=== PATIENT | male | born 1960 | race Caucasian/White ===

== ENCOUNTER 2021-07-29 12:59 | Inpatient (IN) | payer OTHER ==
[2021-07-29] MEDS ORDERED: SODIUM CHLORIDE 0.9% 1000 ML INFUS.BAG IV ONE (13:18)
[2021-07-29] MEDS ORDERED: DEXAMETHASONE SOD PHOSPHATE 10 MG/1 ML VIAL IVPUSH ONE (13:46)
[2021-07-29] MEDS ORDERED: ALBUTEROL SO4 2.5/IPRATROPIUM 0.5 INH SOL 3 ML VIAL.NEB. NEB ONE (13:53)
[2021-07-29] MEDS ORDERED: DEXAMETHASONE SOD PHOSPHATE 10 MG/1 ML VIAL ONE (13:53)
[2021-07-29] MEDS: ALBUTEROL SO4 2.5/IPRATROPIUM 0.5 INH SOL 3 ML VIAL.NEB. NEB SCH ×4 (14:01→14:50)
[2021-07-29] MEDS ORDERED: VANCOMYCIN 1 GM in D5W (PRE-DOCKED) 1,000 MG/250 ML IVPB ONE (14:08)
[2021-07-29] MEDS ORDERED: CEFEPIME HCL/D5W 2 GM/50 ML BAG IVPB ONE (14:08)
[2021-07-29] MEDS ORDERED: VANCOMYCIN 1 GRAM (PRE-DOCKED) 1,000 MG/250 ML BAG IVPB ONE (14:26)
[2021-07-29] MEDS ORDERED: CEFEPIME 2 GM/100 ML BAG IVPB ONE (14:26)
[2021-07-29 14:54] LABS: HEMATOCRIT 22.4 % (35.4-49); HEMOGLOBIN 7.2 GM/dL (11.7-16.9); MCH 26.2 pg (25.7-33.7); MCHC 32.1 g/dl (32.0-35.9); MEAN CELL VOLUME 81.6 fl (80-96); MEAN PLT VOLUME 8.7 fl (7.5-11.1); PLATELET COUNT 107 10^3/uL (134-434); RBC 2.74 M/mm3 (4.00-5.60); RDW 15.5 % (11.9-15.9); WHITE BLOOD COUNT 18.6 K/mm3 (4.0-10.0)
[2021-07-29 14:55] LABS: ARTERIAL BLD GAS O2 SATURATION 99.3 % (95-98); ARTERIAL BLOOD GAS BASE EXCESS -0.9 mmol/L (-2-2); ARTERIAL BLOOD GAS PO2 177.6 mmHg (80-100); ARTERIAL BLOOD GAS pH 7.489 (7.350-7.450)
[2021-07-29] MEDS ORDERED: SODIUM CHLORIDE 0.9% 500 ML INFUS.BAG IV ONE (14:57)
[2021-07-29 15:01] LABS: INR 1.94 (0.83-1.09); PROTHROMBIN TIME (PATIENT) 22.5 SEC (9.7-13.0)
[2021-07-29 15:03] LABS: ACTIVATED PTT 29.8 SECONDS (25.2-36.5)
[2021-07-29 15:12] LABS: CHLORIDE 91 mmol/L (98-107); SODIUM 124 mmol/L (136-145)
[2021-07-29 15:15] LABS: ALBUMIN 1.4 g/dl (3.4-5.0); ANION GAP 11 MMOL/L (8-16); BLOOD UREA NITROGEN 25.8 mg/dL (7-18); CO2 22 mmol/L (21-32); GLUCOSE,RANDOM 131 mg/dL (74-106); MAGNESIUM 2.3 mg/dL (1.8-2.4)
[2021-07-29 15:17] LABS: SGOT/AST 145 U/L (15-37)
[2021-07-29 15:18] LABS: CREATININE 1.1 mg/dL (0.55-1.3); PHOSPHOROUS 4.1 mg/dL (2.5-4.9); SGPT/ALT 50 U/L (13-61)
[2021-07-29 15:19] LABS: BILIRUBIN,TOTAL 1.4 mg/dL (0.2-1)
[2021-07-29 15:20] LABS: TOT PROT 4.4 g/dl (6.4-8.2)
[2021-07-29 15:21] LABS: ALK PHOS 286 U/L (45-117)
[2021-07-29 15:24] LABS: ANISOCYTOSIS 0; HELMET CELLS 0; HOWELL-JOLLY BODIES 0; MACROCYTOSIS 0; OVALOCYTE 0; ROULEAU 0; SICKELED CELLS 0; TARGET CELLS 0; TEAR DROP CELLS 0; TOXIC GRANULATION 0
[2021-07-29 15:25] LABS: LACTIC ACID 2.2 mmol/L (0.4-2.0)
[2021-07-29] MEDS: SODIUM CHLORIDE 1,000 ML IV SCH (16:30)
[2021-07-29 17:15] LABS: ARTERIAL BLD GAS O2 SATURATION 98.2 % (95-98); ARTERIAL BLOOD GAS BASE EXCESS -5.8 mmol/L (-2-2); ARTERIAL BLOOD GAS PO2 111.3 mmHg (80-100); ARTERIAL BLOOD GAS pH 7.417 (7.350-7.450)
[2021-07-29 17:38] LABS: BASO % 0.1 % (0-2.0); EOS % 0.1 % (0-4.5); HEMATOCRIT 17.6 % (35.4-49); LYMPH % 1.6 % (8-40); MCH 26.2 pg (25.7-33.7); MCHC 32.4 g/dl (32.0-35.9); MEAN CELL VOLUME 81.1 fl (80-96); MEAN PLT VOLUME 8.4 fl (7.5-11.1); MONO % 2.3 % (3.8-10.2); NEUT % 95.9 % (42.8-82.8); PLATELET COUNT 80 10^3/uL (134-434); RBC 2.17 M/mm3 (4.00-5.60); RDW 15.5 % (11.9-15.9); RETICULOCYTES 2.22 % (0.5-1.5)
[2021-07-29 17:47] LABS: HEMOGLOBIN 5.7 GM/dL (11.7-16.9)
[2021-07-29 17:50] LABS: CHLORIDE 94 mmol/L (98-107); SODIUM 125 mmol/L (136-145)
[2021-07-29 17:52] LABS: ANION GAP 12 MMOL/L (8-16); CO2 20 mmol/L (21-32)
[2021-07-29 17:53] LABS: GLUCOSE,RANDOM 183 mg/dL (74-106)
[2021-07-29 17:55] LABS: URIC ACID 4.3 mg/dL (2.6-7.2)
[2021-07-29 17:56] LABS: CREATININE 0.9 mg/dL (0.55-1.3)
[2021-07-29 17:57] LABS: IRON SERUM 10 ug/dL (50-175); LDH 195 U/L (87-246); TOTAL IRON BINDING CAPACITY 111 ug/dL (250-450)
[2021-07-29 17:58] LABS: BLOOD UREA NITROGEN 23.8 mg/dL (7-18)
[2021-07-29 18:08] LABS: ANISOCYTOSIS 2+; MACROCYTOSIS 1+; TARGET CELLS 2+
[2021-07-29 18:33] LABS: CALCIUM 6.3 mg/dL (8.5-10.1)
[2021-07-29 19:40] LABS: EPI CELLS 22 /uL (0-25.1); HYALINE CASTS 4 /uL (0-3.1); PH,URINE 6.5 (5.0-8.0); URINE APPEARANCE CLEAR; URINE BILIRUBIN NEGATIVE (NEGATIVE); URINE COLOR YELLOW; URINE GLUCOSE (UA) TRACE (NEGATIVE); URINE KETONE NEGATIVE (NEGATIVE); URINE LEUK ESTERASE NEGATIVE (NEGATIVE); URINE NITRITE POSITIVE (NEGATIVE); URINE PROTEIN 1+ (NEGATIVE); URINE RBC 38 /uL (0-23.9); URINE UROBILINOGEN 0.2 mg/dL (0.2-1.0); URINE WBC 21 /uL (0-25.8)
[2021-07-29] MEDS ORDERED: HEPARIN NA (PORCINE) 5,000 UNITS/ML 1ML VIAL IVPUSH PRN ×2 (21:43)
[2021-07-29] MEDS: HEPARIN - 25,000 UNIT in SODIUM CHLORIDE 495 ML IV SCH (23:11)
[2021-07-29] MEDS: MUPIROCIN 2% TOPICAL OINTMENT FOR DECOLONIZATION NS SCH (23:14)
[2021-07-29] MEDS: CHLORHEXIDINE GLUCONATE 4% CLEANSER FOR DECOLONIZATION TP SCH (23:16)
[2021-07-30] MEDS ORDERED: VANCOMYCIN 1,000 MG in DEXTROSE 5%-WATER - 250 ML IVPB SCH
[2021-07-30] MEDS ORDERED: PIPERACILLIN/TAZOB 4.5 GM 4.5 GM in DEXTROSE 5%-WATER 100 ML IVPB SCH
[2021-07-30] MEDS ORDERED: DEXTROSE 5%-WATER 100 ML IVPB ONE ×3 (01:35→17:05)
[2021-07-30] MEDS ORDERED: PIPERACILLIN/TAZOBACTAM 4.5 GM VIAL IVPB ONE ×3 (01:35→17:05)
[2021-07-30] MEDS: PIPERACILLIN/TAZOB 4.5 GM 4.5 GM in DEXTROSE 5%-WATER 100 ML IVPB SCH ×3 (01:47→17:14)
[2021-07-30] MEDS ORDERED: PIPERACILLIN/TAZOB 3.375 GM 3.375 GM in DEXTROSE 5%-WATER - 50 ML IVPB SCH (02:00)
[2021-07-30] MEDS ORDERED: CALCIUM GLUC IN NACL, ISO-OSM 1 GM/50 ML BAG IVPB ONE (02:41)
[2021-07-30 07:32] LABS: HEMATOCRIT 34.7 % (35.4-49); HEMOGLOBIN 11.4 GM/dL (11.7-16.9); MCHC 32.8 g/dl (32.0-35.9); MEAN CELL VOLUME 82.3 fl (80-96); MEAN PLT VOLUME 8.3 fl (7.5-11.1); PLATELET COUNT 72 10^3/uL (134-434); RBC 4.21 M/mm3 (4.00-5.60); RDW 16.1 % (11.9-15.9); WHITE BLOOD COUNT 24.1 K/mm3 (4.0-10.0)
[2021-07-30 08:00] LABS: ALBUMIN 1.4 g/dl (3.4-5.0); BLOOD UREA NITROGEN 21.7 mg/dL (7-18); MAGNESIUM 2.3 mg/dL (1.8-2.4)
[2021-07-30 08:03] LABS: CREATININE 0.7 mg/dL (0.55-1.3); PHOSPHOROUS 3.2 mg/dL (2.5-4.9)
[2021-07-30 08:05] LABS: TOT PROT 4.6 g/dl (6.4-8.2)
[2021-07-30 08:15] LABS: CALCIUM 7.6 mg/dL (8.5-10.1)
[2021-07-30 09:11] LABS: ANISOCYTOSIS 0; HELMET CELLS 0; HOWELL-JOLLY BODIES 0; MACROCYTOSIS 0; OVALOCYTE 0; ROULEAU 0; SICKELED CELLS 0; TARGET CELLS 0; TEAR DROP CELLS 0; TOXIC GRANULATION 0
[2021-07-30] MEDS ORDERED: CALCIUM GLUCONATE IN NACL 1 GM/50 ML BAG IVPB ONE (09:15)
[2021-07-30] MEDS: MUPIROCIN 2% TOPICAL OINTMENT FOR DECOLONIZATION NS SCH ×2 (09:27→21:34)
[2021-07-30] MEDS ORDERED: VANCOMYCIN 1 GM in D5W (PRE-DOCKED) 1,000 MG/250 ML IVPB SCH (10:00)
[2021-07-30 12:12] LABS: SARS-CoV-2 NAA Not Detected (Not Detected)
[2021-07-30] MEDS: VANCOMYCIN/WATER FOR INJ (PEG) 1,000 MG/200 ML BAG IVPB SCH (13:02)
[2021-07-30 13:08] LABS: URIC ACID 3.7 mg/dL (2.6-7.2)
[2021-07-30 13:09] LABS: BILIRUBIN,DIRECT 1.5 mg/dL (0.0-0.2)
[2021-07-30 16:45] LABS: HEMOGLOBIN 11.1 GM/dL (11.7-16.9); MCH 26.7 pg (25.7-33.7); MCHC 32.7 g/dl (32.0-35.9); MEAN CELL VOLUME 81.5 fl (80-96); MEAN PLT VOLUME 8.8 fl (7.5-11.1); PLATELET COUNT 83 10^3/uL (134-434); RBC 4.17 M/mm3 (4.00-5.60); RDW 16.4 % (11.9-15.9); WHITE BLOOD COUNT 28.7 K/mm3 (4.0-10.0)
[2021-07-30 18:02] LABS: HIV INTERPRETATION NEGATIVE (NEGATIVE)
[2021-07-30] MEDS: SODIUM CHLORIDE 1,000 ML IV SCH ×2 (19:00→21:33)
[2021-07-30] MEDS: CHLORHEXIDINE GLUCONATE 4% CLEANSER FOR DECOLONIZATION TP SCH (21:34)
[2021-07-30] MEDS: HEPARIN - 25,000 UNIT in SODIUM CHLORIDE 495 ML IV SCH (21:37)
[2021-07-31] MEDS ORDERED: PIPERACILLIN/TAZOBACTAM 4.5 GM VIAL IVPB ONE ×3 (01:05→18:01)
[2021-07-31] MEDS ORDERED: DEXTROSE 5%-WATER 100 ML IVPB ONE ×4 (01:06→19:47)
[2021-07-31] MEDS: PIPERACILLIN/TAZOB 4.5 GM 4.5 GM in DEXTROSE 5%-WATER 100 ML IVPB SCH ×3 (01:14→18:07)
[2021-07-31 07:16] LABS: HEMATOCRIT 33.3 % (35.4-49); HEMOGLOBIN 10.9 GM/dL (11.7-16.9); MCH 26.8 pg (25.7-33.7); MCHC 32.6 g/dl (32.0-35.9); MEAN CELL VOLUME 82.2 fl (80-96); MEAN PLT VOLUME 8.8 fl (7.5-11.1); PLATELET COUNT 75 10^3/uL (134-434); RBC 4.05 M/mm3 (4.00-5.60); RDW 16.5 % (11.9-15.9); WHITE BLOOD COUNT 28.5 K/mm3 (4.0-10.0)
[2021-07-31] MEDS: MUPIROCIN 2% TOPICAL OINTMENT FOR DECOLONIZATION NS SCH ×2 (09:31→22:14)
[2021-07-31] MEDS: VANCOMYCIN/WATER FOR INJ (PEG) 1,000 MG/200 ML BAG IVPB SCH (14:00)
[2021-07-31] MEDS: SODIUM CHLORIDE 1,000 ML IV SCH (17:10)
[2021-07-31] MEDS ORDERED: MEROPENEM 1 GM VIAL (RESTRICTED TO ID) IVPB ONE (19:47)
[2021-07-31] MEDS: MEROPENEM 1 GM in DEXTROSE 5%-WATER 100 ML IVPB SCH (19:51)
[2021-07-31] MEDS: HEPARIN - 25,000 UNIT in SODIUM CHLORIDE 495 ML IV SCH (22:14)
[2021-07-31] MEDS: CHLORHEXIDINE GLUCONATE 4% CLEANSER FOR DECOLONIZATION TP SCH (22:15)
[2021-08-01] MEDS ORDERED: MEROPENEM 1 GM VIAL (RESTRICTED TO ID) IVPB ONE ×4 (01:02→23:25)
[2021-08-01] MEDS ORDERED: DEXTROSE 5%-WATER 100 ML IVPB ONE ×4 (01:03→23:26)
[2021-08-01] MEDS: MEROPENEM 1 GM in DEXTROSE 5%-WATER 100 ML IVPB SCH ×3 (01:12→17:11)
[2021-08-01 07:19] LABS: HEMOGLOBIN 9.6 GM/dL (11.7-16.9); MCH 27.2 pg (25.7-33.7); MCHC 33.2 g/dl (32.0-35.9); MEAN PLT VOLUME 9.9 fl (7.5-11.1); PLATELET COUNT 69 10^3/uL (134-434); RBC 3.53 M/mm3 (4.00-5.60); RDW 16.8 % (11.9-15.9); WHITE BLOOD COUNT 23.4 K/mm3 (4.0-10.0)
[2021-08-01] MEDS: MUPIROCIN 2% TOPICAL OINTMENT FOR DECOLONIZATION NS SCH ×2 (10:18→21:06)
[2021-08-01] MEDS: VANCOMYCIN/WATER FOR INJ (PEG) 1,000 MG/200 ML BAG IVPB SCH (13:47)
[2021-08-01 14:16] LABS: BF WBC & OTHER NUCLEATED CELLS 3807 /mm3
[2021-08-01] MEDS: SODIUM CHLORIDE 1,000 ML IV SCH (17:10)
[2021-08-01] MEDS: HEPARIN - 25,000 UNIT in SODIUM CHLORIDE 495 ML IV SCH (21:04)
[2021-08-01] MEDS: CHLORHEXIDINE GLUCONATE 4% CLEANSER FOR DECOLONIZATION TP SCH (21:06)
[2021-08-02] MEDS: MEROPENEM 1 GM in DEXTROSE 5%-WATER 100 ML IVPB SCH ×3 (02:25→17:11)
[2021-08-02 06:57] LABS: HEMATOCRIT 27.6 % (35.4-49); MCH 27.5 pg (25.7-33.7); MCHC 32.7 g/dl (32.0-35.9); MEAN CELL VOLUME 84.1 fl (80-96); MEAN PLT VOLUME 9.2 fl (7.5-11.1); PLATELET COUNT 54 10^3/uL (134-434); RBC 3.29 M/mm3 (4.00-5.60); RDW 17.1 % (11.9-15.9); WHITE BLOOD COUNT 15.3 K/mm3 (4.0-10.0)
[2021-08-02] MEDS ORDERED: DEXTROSE 5%-WATER 100 ML IVPB ONE ×2 (08:23→17:09)
[2021-08-02] MEDS ORDERED: MEROPENEM 1 GM VIAL (RESTRICTED TO ID) IVPB ONE ×2 (08:23→17:09)
[2021-08-02] MEDS ORDERED: HEPARIN NA (PORCINE) 5,000 UNITS/ML 1ML VIAL IVPUSH PRN ×2 (10:15)
[2021-08-02] MEDS ORDERED: SODIUM CHLORIDE 1,000 ML IV SCH (10:15)
[2021-08-02] MEDS ORDERED: HEPARIN - 25,000 UNIT in SODIUM CHLORIDE 495 ML IV SCH (10:30)
[2021-08-02] MEDS: MUPIROCIN 2% TOPICAL OINTMENT FOR DECOLONIZATION NS SCH (10:44)
[2021-08-02] MEDS ORDERED: VANCOMYCIN/WATER FOR INJ (PEG) 1,000 MG/200 ML BAG IVPB SCH (14:00)
[2021-08-02] MEDS ORDERED: SODIUM BICARBONATE 8.4% - 50 ML ONE (21:06)
[2021-08-02] MEDS ORDERED: DOPAMINE 400 MG/D5W - 400,000 MCG/250 ML INFUS.BAG IVPB ONE (21:50)
[2021-08-02] MEDS ORDERED: NOREPINEPHRINE BITARTRATE 4 MG/4 ML ML IV ONE (21:51)
[2021-08-02] MEDS ORDERED: MUPIROCIN 2% TOPICAL OINTMENT FOR DECOLONIZATION NS SCH (22:00)
[2021-08-02] MEDS ORDERED: CHLORHEXIDINE GLUCONATE 4% CLEANSER FOR DECOLONIZATION TP SCH (22:00)
[2021-08-02] MEDS ORDERED: FENTANYL NS IVPB 500 MCG/100 ML BAG IVPB ONE (22:11)
[2021-08-02] MEDS ORDERED: FENTANYL NS IVPB 500 MCG/100 ML BAG IVPB SCH (22:15)
[2021-08-02] MEDS ORDERED: VASOPRESSIN 40 UNITS/100 ML BAG IV SCH (22:30)
[2021-08-02] MEDS ORDERED: NOREPINEPHRINE D5W PREMIX 16,000 MCG/500 ML BAG IVPB SCH (22:30)
[2021-08-02] MEDS: DOPAMINE 400 MG/D5W - 400,000 MCG/250 ML INFUS.BAG IVPB SCH (22:50)
[2021-08-02] MEDS: SODIUM CHLORIDE 1,000 ML IV SCH (22:50)
[2021-08-02] MEDS: FENTANYL NS IVPB 500 MCG/100 ML BAG IVPB SCH (22:51)
[2021-08-02] MEDS: NOREPINEPHRINE D5W PREMIX 16,000 MCG/500 ML BAG IVPB SCH (22:52)
[2021-08-02] MEDS: MIDAZOLAM IN 0.9 % SOD.CHLORID 100 MG/100 ML PLAST..BAG IVPB SCH (23:17)
[2021-08-03 00:53] LABS: HEMATOCRIT 24.9 % (35.4-49); HEMOGLOBIN 7.9 GM/dL (11.7-16.9); MCH 27.1 pg (25.7-33.7); MCHC 31.7 g/dl (32.0-35.9); MEAN CELL VOLUME 85.6 fl (80-96); MEAN PLT VOLUME 8.8 fl (7.5-11.1); PLATELET COUNT 50 10^3/uL (134-434); RBC 2.91 M/mm3 (4.00-5.60); RDW 17.6 % (11.9-15.9)
[2021-08-03] MEDS: VANCOMYCIN/WATER FOR INJ (PEG) 1,000 MG/200 ML BAG IVPB SCH ×2 (01:03→23:24)
[2021-08-03 01:14] LABS: CALCIUM 7.8 mg/dL (8.5-10.1)
[2021-08-03 01:14] LABS: ARTERIAL BLD GAS O2 SATURATION 98.3 % (95-98); ARTERIAL BLOOD GAS BASE EXCESS -11.4 mmol/L (-2-2); ARTERIAL BLOOD GAS PO2 145.4 mmHg (80-100)
[2021-08-03 01:15] LABS: ALBUMIN 1.2 g/dl (3.4-5.0); BLOOD UREA NITROGEN 22.3 mg/dL (7-18); MAGNESIUM 2.3 mg/dL (1.8-2.4)
[2021-08-03 01:16] LABS: VENT MODE V-A/C; VENT RATE 20
[2021-08-03 01:18] LABS: CREATININE 1.1 mg/dL (0.55-1.3); PHOSPHOROUS 5.1 mg/dL (2.5-4.9)
[2021-08-03 01:19] LABS: ARTERIAL BLOOD GAS pH 7.179 (7.350-7.450)
[2021-08-03 01:19] LABS: BILIRUBIN,TOTAL 2.2 mg/dL (0.2-1); TOT PROT 3.9 g/dl (6.4-8.2)
[2021-08-03] MEDS: KCL 10 MEQ IVPB 10 MEQ/100 ML INFUS.BAG IVPB SCH ×3 (01:52→04:04)
[2021-08-03] MEDS ORDERED: MEROPENEM 1 GM in DEXTROSE 5%-WATER 100 ML IVPB SCH (02:00)
[2021-08-03] MEDS ORDERED: MEROPENEM 1 GM VIAL (RESTRICTED TO ID) IVPB ONE ×3 (02:12→15:46)
[2021-08-03] MEDS ORDERED: SODIUM CHLORIDE 100 ML IVPB ONE ×3 (02:13→15:46)
[2021-08-03] MEDS: MEROPENEM 1 GM in SODIUM CHLORIDE 100 ML IVPB SCH ×3 (02:15→17:30)
[2021-08-03] MEDS ORDERED: RAPID SEQUENCE INTUBATION KIT NR ONE (02:16)
[2021-08-03] MEDS: HYDROCORTISONE SOD SUCCINATE 100 MG/2 ML VIAL IVPUSH SCH ×4 (05:11→21:20)
[2021-08-03 06:40] LABS: ARTERIAL BLD GAS O2 SATURATION 98.6 % (95-98); ARTERIAL BLOOD GAS BASE EXCESS -13.1 mmol/L (-2-2); ARTERIAL BLOOD GAS PO2 160.6 mmHg (80-100)
[2021-08-03 06:44] LABS: ALLENS TEST POSITIVE
[2021-08-03 06:45] LABS: VENT MODE A/C; VENT RATE 20
[2021-08-03 06:54] LABS: ARTERIAL BLOOD GAS pH 7.183 (7.350-7.450)
[2021-08-03 07:16] LABS: HEMATOCRIT 25.9 % (35.4-49); HEMOGLOBIN 8.1 GM/dL (11.7-16.9); MCH 27.1 pg (25.7-33.7); MCHC 31.4 g/dl (32.0-35.9); MEAN CELL VOLUME 86.3 fl (80-96); MEAN PLT VOLUME 9.1 fl (7.5-11.1); PLATELET COUNT 51 10^3/uL (134-434); RDW 17.9 % (11.9-15.9); WHITE BLOOD COUNT 23.9 K/mm3 (4.0-10.0)
[2021-08-03 07:29] LABS: ALBUMIN 1.2 g/dl (3.4-5.0); BLOOD UREA NITROGEN 23.8 mg/dL (7-18); CALCIUM 7.5 mg/dL (8.5-10.1); MAGNESIUM 2.2 mg/dL (1.8-2.4)
[2021-08-03 07:32] LABS: CREATININE 1.3 mg/dL (0.55-1.3); PHOSPHOROUS 5.3 mg/dL (2.5-4.9)
[2021-08-03 07:34] LABS: BILIRUBIN,TOTAL 2.4 mg/dL (0.2-1); TOT PROT 3.9 g/dl (6.4-8.2)
[2021-08-03] MEDS: DOPAMINE 400 MG/D5W - 400,000 MCG/250 ML INFUS.BAG IVPB SCH ×2 (10:00→17:30)
[2021-08-03] MEDS: MUPIROCIN 2% TOPICAL OINTMENT FOR DECOLONIZATION NS SCH ×2 (11:16→21:33)
[2021-08-03] MEDS: VASOPRESSIN 40 UNITS/100 ML BAG IV SCH (11:30)
[2021-08-03] MEDS: SODIUM CHLORIDE 1,000 ML IV SCH ×3 (11:30→18:54)
[2021-08-03] MEDS: SODIUM BICARBONATE 8.4% - 150 MEQ in DEXTROSE 5%-WATER - 950 ML IVPB SCH ×2 (13:30→23:26)
[2021-08-03 14:35] LABS: ARTERIAL BLD GAS O2 SATURATION 98.7 % (95-98); ARTERIAL BLOOD GAS BASE EXCESS -17.1 mmol/L (-2-2); ARTERIAL BLOOD GAS PO2 171.4 mmHg (80-100)
[2021-08-03 14:36] LABS: ALLENS TEST POSITIVE; VENT MODE AC; VENT RATE 30
[2021-08-03 14:37] LABS: ARTERIAL BLOOD GAS pH 7.139 (7.350-7.450)
[2021-08-03] MEDS ORDERED: HEPARIN NA (PORCINE) 5,000 UNITS/ML 1ML VIAL IVPUSH PRN ×2 (14:57)
[2021-08-03] MEDS ORDERED: HEPARIN - 25,000 UNIT in SODIUM CHLORIDE 495 ML IV SCH ×2 (15:00→19:05)
[2021-08-03] MEDS ORDERED: SODIUM BICARBONATE 8.4% - 50 ML ONE (17:22)
[2021-08-03] MEDS: FLUDROCORTISONE ACETATE 0.1 MG TABLET (FP) PO SCH (17:27)
[2021-08-03] MEDS: SODIUM BICARBONATE 8.4% 50 MEQ/50 ML VIAL IVPUSH SCH ×2 (17:29→21:32)
[2021-08-03 19:56] LABS: ARTERIAL BLD GAS O2 SATURATION 99.2 % (95-98); ARTERIAL BLOOD GAS BASE EXCESS -12.1 mmol/L (-2-2); ARTERIAL BLOOD GAS PO2 218.5 mmHg (80-100)
[2021-08-03 20:01] LABS: VENT MODE A/C; VENT RATE 22
[2021-08-03 20:02] LABS: ARTERIAL BLOOD GAS pH 7.177 (7.350-7.450)
[2021-08-03 21:29] LABS: HEMATOCRIT 21.5 % (35.4-49); MCH 27.1 pg (25.7-33.7); MCHC 30.7 g/dl (32.0-35.9); MEAN CELL VOLUME 88.2 fl (80-96); MEAN PLT VOLUME 8.9 fl (7.5-11.1); PLATELET COUNT 41 10^3/uL (134-434); RBC 2.44 M/mm3 (4.00-5.60); RDW 18.3 % (11.9-15.9); WHITE BLOOD COUNT 23.1 K/mm3 (4.0-10.0)
[2021-08-03 21:32] LABS: HEMOGLOBIN 6.6 GM/dL (11.7-16.9)
[2021-08-03] MEDS ORDERED: CHLORHEXIDINE GLUCONATE 4% CLEANSER FOR DECOLONIZATION TP SCH (22:00)
[2021-08-04] MEDS ORDERED: SODIUM CHLORIDE 100 ML IVPB ONE ×2 (00:55→10:07)
[2021-08-04] MEDS ORDERED: MEROPENEM 1 GM VIAL (RESTRICTED TO ID) IVPB ONE ×2 (00:55→10:07)
[2021-08-04] MEDS: MEROPENEM 1 GM in SODIUM CHLORIDE 100 ML IVPB SCH ×2 (02:24→10:46)
[2021-08-04] MEDS: NOREPINEPHRINE D5W PREMIX 16,000 MCG/500 ML BAG IVPB SCH (02:26)
[2021-08-04] MEDS: DOPAMINE 400 MG/D5W - 400,000 MCG/250 ML INFUS.BAG IVPB SCH ×2 (02:27→11:04)
[2021-08-04] MEDS: MIDAZOLAM IN 0.9 % SOD.CHLORID 100 MG/100 ML PLAST..BAG IVPB SCH (02:28)
[2021-08-04] MEDS: HYDROCORTISONE SOD SUCCINATE 100 MG/2 ML VIAL IVPUSH SCH ×3 (02:29→20:19)
[2021-08-04] MEDS: FENTANYL NS IVPB 500 MCG/100 ML BAG IVPB SCH (02:31)
[2021-08-04] MEDS: SODIUM CHLORIDE 1,000 ML IV SCH (02:33)
[2021-08-04] MEDS: SODIUM BICARBONATE 8.4% 50 MEQ/50 ML VIAL IVPUSH SCH ×2 (03:45→10:47)
[2021-08-04 06:27] LABS: HEMATOCRIT 28.5 % (35.4-49); HEMOGLOBIN 8.9 GM/dL (11.7-16.9); MCH 27.5 pg (25.7-33.7); MCHC 31.4 g/dl (32.0-35.9); MEAN CELL VOLUME 87.4 fl (80-96); MEAN PLT VOLUME 10.1 fl (7.5-11.1); PLATELET COUNT 53 10^3/uL (134-434); RBC 3.26 M/mm3 (4.00-5.60); RDW 17.9 % (11.9-15.9)
[2021-08-04 06:47] LABS: CHLORIDE 100 mmol/L (98-107); SODIUM 135 mmol/L (136-145)
[2021-08-04 06:50] LABS: ANION GAP 15 MMOL/L (8-16); BLOOD UREA NITROGEN 27.8 mg/dL (7-18); CO2 20 mmol/L (21-32); GLUCOSE,RANDOM 362 mg/dL (74-106)
[2021-08-04 06:51] LABS: ALBUMIN 1.1 g/dl (3.4-5.0)
[2021-08-04 06:54] LABS: CREATININE 1.5 mg/dL (0.55-1.3); SGOT/AST 140 U/L (15-37); SGPT/ALT 44 U/L (13-61); WHITE BLOOD COUNT 35.5 K/mm3 (4.0-10.0)
[2021-08-04 06:55] LABS: BILIRUBIN,TOTAL 3.4 mg/dL (0.2-1); TOT PROT 3.7 g/dl (6.4-8.2)
[2021-08-04 07:03] LABS: ALK PHOS 577 U/L (45-117); CALCIUM 6.6 mg/dL (8.5-10.1)
[2021-08-04] MEDS ORDERED: PANTOPRAZOLE SODIUM 40 MG VIAL IVPUSH SCH (10:00)
[2021-08-04] MEDS: MUPIROCIN 2% TOPICAL OINTMENT FOR DECOLONIZATION NS SCH (10:14)
[2021-08-04 10:18] LABS: ARTERIAL BLOOD GAS BASE EXCESS -6.4 mmol/L (-2-2); ARTERIAL BLOOD GAS PO2 101.5 mmHg (80-100); ARTERIAL BLOOD GAS pH 7.293 (7.350-7.450)
[2021-08-04 10:25] LABS: ALLENS TEST POSITIVE; VENT MODE A/C; VENT RATE 22
[2021-08-04] MEDS ORDERED: MIDAZOLAM HCL 2 MG/2 ML SINGLE DOSE VIAL IVPUSH PRN (10:27)
[2021-08-04] MEDS: SODIUM BICARBONATE 8.4% - 150 MEQ in DEXTROSE 5%-WATER - 950 ML IVPB SCH (10:30)
[2021-08-04] MEDS: VASOPRESSIN 40 UNITS/100 ML BAG IV SCH ×2 (11:03→11:15)
[2021-08-04] MEDS ORDERED: MIDAZOLAM HCL 2 MG/2 ML SINGLE DOSE VIAL IVPUSH ONE (12:00)
[2021-08-04] MEDS ORDERED: MIDAZOLAM HCL 2 MG/2 ML SINGLE DOSE VIAL ONE (13:18)
[2021-08-04] MEDS ORDERED: SODIUM BICARBONATE 8.4% - 50 ML ONE (13:28)
[2021-08-04 13:30] VITALS: BMI 19.4
[2021-08-04] MEDS ORDERED: HEPARIN NA (PORCINE) 5,000 UNITS/ML 1ML VIAL SQ SCH (14:00)
[2021-08-04] MEDS: FLUDROCORTISONE ACETATE 0.1 MG TABLET (FP) PO SCH (16:13)
[2021-08-04 16:55] VITALS: TEMP 96.5
[2021-08-04 20:30] VITALS: BP 64/35; PULSE 127
== END 2021-08-04 20:55 | disposition expired | DRG 720 ==
LOC: JER 12:59 → JERBED 13:14 → JICU 21:32 → J4W 08-02 09:23 → JICU 08-02 21:46
PROVIDERS: ADMIT Internal Medicine; ATTEND Internal Medicine
PROC: 06H03DZ Insertion of Intraluminal Device into Inferior Vena Cava, Percutaneous Approach (ICD-10-PCS; principal; 2021-07-31)
PROC: 0W9930Z Drainage of Right Pleural Cavity with Drainage Device, Percutaneous Approach (ICD-10-PCS; 2021-07-31)
PROC: 06HM33Z Insertion of Infusion Device into Right Femoral Vein, Percutaneous Approach (ICD-10-PCS; 2021-08-02)
PROC: B54BZZA Ultrasonography of Right Lower Extremity Veins, Guidance (ICD-10-PCS; 2021-08-02)
PROC: 05H733Z Insertion of Infusion Device into Right Axillary Vein, Percutaneous Approach (ICD-10-PCS; 2021-08-03)
PROC: B54MZZA Ultrasonography of Right Upper Extremity Veins, Guidance (ICD-10-PCS; 2021-08-03)
PROC: 5A1945Z Respiratory Ventilation, 24-96 Consecutive Hours (ICD-10-PCS; 2021-08-03)
PROC: 0BH17EZ Insertion of Endotracheal Airway into Trachea, Via Natural or Artificial Opening (ICD-10-PCS; 2021-08-03)
PROC: 0W9D3ZZ Drainage of Pericardial Cavity, Percutaneous Approach (ICD-10-PCS; 2021-08-04)
PROC: 05H533Z Insertion of Infusion Device into Right Subclavian Vein, Percutaneous Approach (ICD-10-PCS; 2021-08-04)
PROC: B546ZZA Ultrasonography of Right Subclavian Vein, Guidance (ICD-10-PCS; 2021-08-04)
DX: A41.9 Sepsis, unspecified organism (principal); I26.99 Other pulmonary embolism without acute cor pulmonale; I10 Essential (primary) hypertension; D64.9 Anemia, unspecified; I31.3 Pericardial effusion (noninflammatory); F10.20 Alcohol dependence, uncomplicated; J86.9 Pyothorax without fistula; J96.01 Acute respiratory failure with hypoxia; E43 Unspecified severe protein-calorie malnutrition; Z68.1 Body mass index [BMI] 19.9 or less, adult; J94.8 Other specified pleural conditions; R64 Cachexia; L89.152 Pressure ulcer of sacral region, stage 2; J90 Pleural effusion, not elsewhere classified; E87.2 Acidosis; D69.6 Thrombocytopenia, unspecified; J69.0 Pneumonitis due to inhalation of food and vomit; R91.8 Other nonspecific abnormal finding of lung field; R65.21 Severe sepsis with septic shock; I46.9 Cardiac arrest, cause unspecified
CPT/HCPCS: 32557; 36415; 36430; 36600; 37191; 70450-TC; 71045-TC-FY; 71275-TC; 80048; 80053; 81003; 82248; 82272; 82436; 82553; 82570; 82607; 82728; 82746; 82803; 82962; 83010; 83540; 83550; 83605; 83615; 83735; 83930; 83935; 84100; 84133; 84157; 84300; 84443; 84484; 84540; 84550; 85025; 85027; 85045; 85610; 85730; 86480; 86850; 86900; 86901; 86922; 87040; 87070; 87075; 87086; 87205; 87389; 87804; 88108; 93005; 93010; 93306-TC; 94002; 97162-GP; 99285-25; C9803-CS; G0480; J1100; J1644; J3490; P9058; Q9967; U0003; U0005